=== PATIENT | female | born 1995 | race African-American/Black ===

== ENCOUNTER 2021-03-20 21:01 | Emergency (ER) | payer BC, OTHER ==
--- OUTSIDE RECORDS SUMMARY | 2021-03-20 21:04 | XMS REPORT | Continuity of Care Document ---
:1995 Author Organization [facility] t Address [address] [place] [address] Care Team Providers Name Role Phone Earl Nobles Primary Care Physician Monserrat Schroeder Attending Clinician Unavailable Jc BUNDY Attending Clinician Unavailable Jc Bundy DO Attending Clinician Brandon Vizcaino Attending Clinician Unavailable Rolando Attending Clinician Unavailable Darby Attending Clinician Unavailable Monserrat Schroeder Admitting Clinician Unavailable Payers Payer Name Policy Type Policy Number Effective Date Expiration Date S [facility] [id number] 2018 00:00:00 Problems Condition Condition Condition Status Onset Resolution Last Treating Co mments Source Name Details Category Date Date Treatment Clinician Date No known No known Disease Unive rs active active ity of problems problems [facility] Allergies, Adverse Reactions, Alerts Allergy Allergy Status Severity Reaction(s) Onset Inactive Treating Comm ents Source Name Type Date Date Clinician No Known DA Active U 2020-04 [facility] [place] No Known DA Active U 2020-04 [facility] 05-04 [facility] [place] No Known DA Active U 2020-04 [facility] All[facility]ie 05-04 [facility] [place] No Known DA Active U 2019-0 [facility] All[facility]ie 5-17 [facility] 00:[facility]: [facility] NO KNOWN Drug Active Univers ALLERGIE Class ity of S [facility] [place] [facility] Social History Social Habit Start Date Stop Date Quantity Comments Source Exposure to Unable to assess Univers ity of SARS-CoV-2 [facility] (event) Adams Sex Assigned At [birth year] [facility]it y of 00:00:00 00:00:00 [facility] Smoking Status Start Date Stop Date Source Unknown if ever smoked Universit y of [facility] Medications Ordered Filled Start Stop Current Ordering Indication Dosage Frequency Signature Comments Components Source Medication Medication Date Date Medication? Clinician (SIG) Name Name diphenhydrA 2020-04 No 25mg 25 mg, Uni vers MINE 05-19 Slow IV ity of (BENADRYL) 20:30: 19:25 [place], [place] injection 00 :00 ONCE, 1 Medical 25 mg dose, On [facility] 03/19/21 at 1430, STAT metoclopram 2020-04- No 10mg 10 mg, Uni vers gm HCl 05-19 Slow IV ity of (REGLAN) 20:30: 19:26 [place], [place] injection 00 :00 ONCE, 1 Medical 10 mg dose, On [facility] 03/19/21 at 1430, WILFREDO ketorolac 2020-04- No 30mg 30 mg, Unive rs (TORADOL) 05-19 Slow IV ity of injection 20:30: 19:25 [place], [place] 30 mg 00 :00 ONCE, 1 Medical dose, On [facility] 03/19/21 at 1430, WILFREDO
Fa culty member approving Restricted medication : MILLIE BUNDY NaCl 0.9% 2020-04 No 1000mL at 999 Uni vers (NS) bolus 05-19 mL/hr, ity of infusion 20:15: 20:53 1,000 mL, George as 1,000 mL 00 :00 IV Medical Infusion, Branch ONCE, 1 dose, On [place] 03/19/21 at 1415, WILFREDO No known 2020-04 No Univers medications 05-19 ity of 13:00: [address] Vital Signs Vital Name Observation Time Observation Value Comments Source Systolic blood 2021-03-19 20:00:00 119 mm[Hg] Univer sity of pressure [facility] [place] [facility] Diastolic blood 2021-03-19 20:00:00 81 mm[Hg] Unive rsity of pressure [facility] Heart rate 2021-03-19 20:00:00 74 /min [facility] Respiratory rate 2021-03-19 20:00:00 20 /min [facility] Oxygen saturation in 2021-03-19 20:00:00 100 /min [facility] Arterial blood by [facility] Pulse oximetry Branch Body weight 2021-03-19 18:36:00 97.523 kg [facility] Procedures Procedure Date / Time Performed Performing Clinician [facility] e NOTICE OF PRIVACY 2021-03-19 18:30:07 Doctor Unassigned, No Univ [facility] PRACTICES Name [facility] CONSENT/REFUSAL FOR 2021-03-19 18:29:14 Doctor Unassigned, No Un [facility] DIAGNOSIS AND Name [facility] TREATMENT [id number] 2021-03-04 00:00:00 HENDE.01 [facility] [id number] 2021-03-04 00:00:00 HENDE.01 [facility] [id number] 2021-03-04 00:00:00 HENDE.01 [facility] [id number] 2021-03-04 00:00:00 HENDE.01 [facility] [id number] 2021-03-04 00:00:00 HENDE.01 [facility] Encounters Start End Encounter Admission Attending Care Care Encounter Source Date/Time Date/Time Type Type Clinicians Facility Department ID 2021-03-11 Inpatient JUAN Schroeder [facility] LD [id number] [facility] 08:55:00 Dian [id number] [facility] 2021-03-11 [facility] [id number] [facility] 08:55:00 Dian 40 [facility] 2021-03-19 2021-03-19 Emergency X NIHARIKA [facility] ERT [id number] Univers 12:37:00 14:55:00 MILLIE ortega [facility] 2021-03-19 2021-03-19 Emergency [facility] [id number] [facility] 12:37:00 14:55:00 Millie WEBBER [id number] [facility] [id number] [facility] [id number] [address] 2021-03-16 2021-03-17 Emergency EM Carrillo [facility] PAULA [id number] [facility] 19:32:00 04:45:00 Piero [id number] [facility] [place] 2021-03-16 2021-03-16 Emergency EM Carrillo [facility] [id number] [facility] 19:32:00 19:32:00 Piero 46 [facility] [place] 2021-03-10 2021-03-10 Emergency EM Rolando, [facility] [id number] [facility] 14:58:00 20:07:00 Ariel [id number] [facility] [place] 2021-03-10 2021-03-10 Emergency EM Rolando, [facility] [id number] [facility] 14:58:00 20:07:00 Ariel 42 [facility] [place] 2021-03-04 2021-03-05 Inpatient EM Alexandre [facility] OB [id number] [facility] 01:52:00 14:21:00 Dian [id number] [facility] [place] 2021-03-04 2021-03-05 Inpatient EM Alexandre [facility] OB [id number] [facility] 01:52:00 14:21:00 Dian 33 [facility] [place] 2021-03-03 2021-03-03 Emergency EM Alexandre [facility] OSKAR [id number] [facility] 22:37:00 22:37:00 Dian [id number] [facility] [place] 2020-10-28 2020-10-28 Outpatient EM HARRY Pastor ELIZABETH [id number] [facility] 08:38:00 08:38:00 Remberto [id number] [facility] [place] 2020-10-17 2020-10-17 Outpatient HARRY Pastor ELIZABETH [id number] [facility] 09:00:00 09:00:00 Remberto [id number] [facility] Results Test Description Test Time Test Comments Results Result [facility] e Comments - CTA HEAD 2021-03-17 00:00:00 [facility] 1995 Sex: F Patient Name: JEN OLIVIER Unit No: [id number] EXAMS: CPT CODE: [id number] CTA HEAD 56583 Radiation Dose CTDIVOL = 53.03 (mGy): DLP = 1058.05 (mGy-cm) PROCEDURE INFORMATION: Exam: CT Angiography Head With Contrast, Venography Exam date and time: 03/17/2021 2:48 AM Age: 25 years old Clinical indication: Pain; Headache; Additional info: Abnormal CT head TECHNIQUE: Imaging protocol: Computed tomography angiography of the head with contrast. Exam focused on the veins. 3D rendering (Not supervised by radiologist): MIP and/or 3D reconstructed images were created by the technologist. Radiation optimization: All CT scans at this facility use at least one of these dose optimization techniques: automated exposure control; mA and/or kV adjustment per patient size (includes targeted exams where dose is matched to clinical indication); or iterative reconstruction. Contrast material: ISOVUE 300; Contrast volume: 100 ml; Contrast route: INTRAVENOUS (IV); COMPARISON: CT HEAD/BRAIN W/O CONT 03/16/2021 8:27 PM RADIATION DOSE METRICS: CTDI volume (mGy): 53.03 Total DLP (mGy-cm): 1058.05 FINDINGS: CTA BRAIN: The bilateral internal carotid arteries are patent. The bilateral anterior and middle cerebral arteries are patent. The vertebrobasilar arteries and bilateral posterior cerebral arteries are patent. No aneurysms are identified. CTV BRAIN: The superior sagittal sinus, straight sinus, vein of Cooper, internal cerebral veins, basal veins, transverse sinuses, sigmoid [facility] NAME: SOYJEN Radiology Department PHYS: Piero Myers [address] : 1995 AGE: 25 SEX: F [place], [place] [address] LOC: BlasERS PHONE #: [phone] EXAM DATE: 03/17/2021 STATUS: REG ER FAX #: [phone] RAD NO: Page 1 Signed Report 1 Patient Name: JEN OLIVIER Unit No: [id number] EXAMS: CPT CODE: [id number] CTA HEAD 42077 <Continued> sinuses, and jugular bulbs are patent. No thrombosed superficial cerebral veins are identified. IMPRESSION: 1. No occlusion or appreciably significant stenosis of the [place]. 2. No cerebral aneurysms are identified. 3. No evidence of intracranial venous thrombosis. at 0343 Reported and signed by: Santy Soto MD CC: Technologist: RT Marquez CTDI: DLP: Trnscrbd D/ (0343) GCD[facility] The [facility] NAME: JEN OLIVIER Radiology Department PHYS: JOSHUATee Bradyиван Taylor [address] : 1995 AGE: 25 SEX: F [place], [place] [address] LOC: BlasERS PHONE #: [phone] EXAM DATE: 03/17/2021 STATUS: REG ER FAX #: [phone] RAD NO: Page 2 Signed Report 1 Patient Name: JEN OLIVIER Unit No: [id number] EXAMS: CPT CODE: [id number] CTA HEAD 14391 <Continued> Orig Print D/T: S: 03/17/2021 (0343) [facility] NAME: SOYJEN Radiology Department PHYS: JOSJE.02 - Piero Vizcaino [address] : 1995 AGE: 25 SEX: F [place], [place] [address] LOC: MUNIRA PHONE #: [phone] EXAM DATE: 03/17/2021 STATUS: REG ER FAX #: [phone] RAD NO: Page 3 Signed Report 1 COMPREHENSIVE METABOLIC PANEL 2021-03-16 23:24:00 Test Item Value Reference Range Interpretation Comme nts SODIUM (test code = NA) 145 mEq/L 135-145 N POTASSIUM (test code = K) 4.3 mEq/L 3.5-5.0 N CHLORIDE (test code = CL) 109 mEq/L 100-115 N CARBON DIOXIDE (test code = CO2) 28 mEq/L 22-31 N ANION GAP (test code = GAP) 12.00 10-20 N GLUCOSE (test code = GLU) 108 mg/dL 65-110 N BLOOD UREA NITROGEN (test code = BUN) 11 mg/dL 7-18 N GLOMERULAR FILTRATION RATE (test code = GFR) 113 ml/min >60 N CREATININE (test code = CREAT) 0.7 mg/dL 0.5-1.0 N TOTAL PROTEIN (test code = PROT) 6.8 gm/dL 6.3-8.2 N ALBUMIN (test code = ALB) 2.9 gm/dL 3.4-4.8 L CALCIUM (test code = CA) 9.0 mg/dL 8.4-10.2 N BILIRUBIN TOTAL (test code = BILT) 0.1 mg/dL 0.2-1.0 L SGOT/AST (test code = AST) 13 units/L 15-37 L SGPT/ALT (test code = ALT) 21 units/L 12-78 N ALKALINE PHOSPHATASE TOTAL (test code = ALKP) 112 units/L 46-116 N [id number] 23:24:00 Test Item Value Reference Range Interpretation Comments LIPASE (test code = LIP) 87 units/L 73-393 N CBC W/AUTO [id number] 23:14:00 Test Item Value Reference Range Interpretation Comments WHITE BLOOD CELL (test code = WBC) 7.2 K/mm3 6.5-12.3 N RED BLOOD CELL (test code = RBC) 3.50 M/mm3 3.51-4.69 L HEMOGLOBIN (test code = HGB) 10.6 g/dL 10.1-13.8 N HEMATOCRIT (test code = HCT) 32.4 % 32.5-41.8 L MEAN CELL VOLUME (test code = MCV) 92.6 fL 84.6-96.6 N MEAN CELL HGB (test code = MCH) 30.3 pg 27.3-33.9 N MEAN CELL HGB CONCETRATION (test 32.7 gm/dL 32.0-34.2 N code = MCHC) RED CELL DISTRIBUTION WIDTH (test 13.0 % 12.2-16.3 N code = RDW) PLATELET COUNT (test code = PLT) 387 K/mm3 134-363 H MEAN PLATELET VOLUME (test code = 9.1 fL 9.2-12.7 L MPV) NEUTROPHIL % (test code = NT%) 51.5 % 57.9-77.3 L LYMPHOCYTE % (test code = LY%) 37.4 % 14.5-29.7 H MONOCYTE % (test code = MO%) 7.4 % 3.6-10.2 N EOSINOPHIL % (test code = EO%) 3.1 % 0.0-3.0 H BASOPHIL % (test code = BA%) 0.3 % 0.1-0.9 N NEUTROPHIL # (test code = NT#) 3.7 K/mm3 LYMPHOCYTE # (test code = LY#) 2.7 K/mm3 MONOCYTE # (test code = MO#) 0.5 K/mm3 EOSINOPHIL # (test code = EO#) 0.22 K/mm3 BASOPHIL # (test code = BA#) 0.0 K/mm3 RBC MORPHOLOGY REQUIRED (test code NORMAL NORMAL = RBCM) PLATELET MORPHOLOGY REQUIRED (test NORMAL NORMAL code = PLTMR) UA RFLX MICR CULT IF [id number] 20:33:00 Test Item Value Reference Range Interpretation Comments UA COLOR (test code = COLU) YELLOW YELLOW UA APPEARANCE (test code = CLEAR CLEAR APPU) UA GLUCOSE DIPSTICK (test code NEGATIVE NEG = DGLUU) UA BILIRUBIN DIPSTICK (test NEGATIVE NEG code = BILU) UA KETONE DIPSTICK (test code NEGATIVE NEG = KETU) UA SPECIFIC GRAVITY (test code 1.020 1.001-1.035 N = SGU) UA BLOOD DIPSTICK (test code = 1+ NEG A SERENE) UA PH DIPSTICK (test code = 5.0 5-9 MERCEDES) UA PROTEIN DIPSTICK (test code NEGATIVE NEG = PROU) UA UROBILINIOGEN DIPSTICK NEGATIVE mg/dL NEG (test code = URO) UA NITRITE DIPSTICK (test code NEG NEG = NINA) UA LEUKOCYTE ESTERASE DIPSTICK NEG NEG (test code = LEUU) UA WBC (test code = WBCU) 3-5 #/hpf NONE SEEN A UA RBC (test code = RBCU) 0-2 #/hpf NONE SEEN UA EPITHELIAL CELLS (test code RARE #/HPF RARE-FEW = EPIU) UA BACTERIA (test code = BACU) NEGATIVE /HPF RARE-FEW UA MUCUS (test code = MUCU) RARE NONE SEEN Indication for culture: Flank PainSpecimen Description: CLEAN CATCH- CT HEAD/BRAIN W/O [id number] 00:00:00 [facility] 1995 Sex: F Patient Name: JEN OLIVIER Unit No: [id number] EXAMS: CPT CODE: [id number] CT HEAD/BRAIN W/O CONT 15919 Radiation Dose CTDIVOL = 55.53 (mGy): DLP = 777.55 (mGy-cm) PROCEDURE INFORMATION: Exam: CT Head Without Contrast Exam date and time: 03/16/2021 8:27 PM Age: 25 years old Clinical indication: Other: Headaches, TECHNIQUE: Imaging protocol: Computed tomography of the head without contrast. Radiation optimization: All CT scans at this facility use at least one of these dose optimization techniques: automated exposure control; mAand/or kV adjustment per patient size (includes targeted exams where dose is matched to clinical indication); or iterative reconstruction. ADDITIONAL STUDY INFORMATION: CTDI volume (mGy): 55.53 Total DLP (mGy-cm): 777.55 COMPARISON: No relevant prior studies available. FINDINGS: INTRACRANIAL: The CT images of the head demonstrate no acute abnormal regions of increased or decreased cerebral density. Cooper-white differentiation appears preserved. The ventricular s ystem is normal in size and configuration without midline shift. No intra or extra axial masses orfluid collections are identified. Prominence of the pituitary gland is compatible with . A cerebral vein over the right parietal convexity (series 601, images 20 through 26; series 602, images 33 through 38) is noted to be more dense than the remainder of the cerebral veins and venous sinuses, possibly indicating thrombosis. There is no CT evidence of acute intracranial hemorrhage. SKULL: No acute CT abnormalities of the calvarium are detected. SINUSES: The included portions of the paranasal sinuses and mastoid air cell appear clear of acute disease. [facility] NAME: SOYJEN Radiology Department PHYS: Piero Myers [address] : 1995 AGE: 25 SEX: F [place], [place] [address] LOC: MUNIRA PHONE #: [phone] EXAM DATE: 03/16/2021 STATUS: OSVALDO WALLER FAX #: [phone] NO: Page 1 Signed Report 1 Patient Name: JEN OLIVIER Unit No: [id number] EXAMS: CPT CODE: [id number] CT HEAD/BRAIN W/O CONT 41353 <Continued> ADDITIONAL FINDINGS: None. IMPRESSION: 1. A cerebral veinover the right parietal convexity is noted to be more dense than the remainder of the cerebral veins and the venous sinuses, raising the possibility of venous thrombosis. No additional acute intracranial abnormalities are detected. There is no CT evidence of acute intracranial ischemia, acute intracranial hemorrhage or intracranial mass effect. Prominence of the pituitary gland is noted and is compatible with . SL:131 at 2058 Reported and signed by: Fernando Candelario MD CC: Technologist: Zee Jeitler, RT,CT,MR CTDI: 55.53 DLP: 777.55 Trnscrbd D/ (2057) VINOD [facility] NAME: JEN OLIVIER Radiology Department PHYS: Piero Myers [address] : 1995 AGE: 25 SEX: F [place], [place] [address] LOC: MUNIRA PHONE #: [phone] EXAM DATE: 03/16/2021 STATUS: REG ER FAX #: [phone] RAD NO: Page 2 Signed Report 1 Patient Name: JEN OLIVIER Unit No: [id number] EXAMS: CPT CODE: [id number] CT HEAD/BRAIN W/O CONT 02814 <Continued> Orig Print D/T: S: 03/16/2021 (2057) [facility] NAME: JEN OLIVIER Radiology Department PHYS: Piero Myers [address] : 1995 AGE: 25 SEX:F [place], [place] [address] LOC: MUNIRA PHONE #: [phone] EXAM DATE: 03/16/2021 STATUS: REG ER FAX #: [phone] RAD NO: Page 3 Signed Report 1UA RFLX MICR CULT IF [id number] 18:07:00 Test Item Value Reference Range Interpretation Comments UA COLOR (test code = COLU) YELLOW YELLOW UA APPEARANCE (test code = APPU) CLEAR CLEAR UA GLUCOSE DIPSTICK (test code = NEGATIVE NEG DGLUU) UA BILIRUBIN DIPSTICK (test code NEGATIVE NEG = BILU) UA KETONE DIPSTICK (test code = 2+ NEG A KETU) UA SPECIFIC GRAVITY (test code = 1.024 1.001-1.035 N SGU) UA BLOOD DIPSTICK (test code = 2+ NEG A SERENE) UA PH DIPSTICK (test code = MERCEDES) 5.0 5-9 UA PROTEIN DIPSTICK (test code = NEGATIVE NEG PROU) UA UROBILINIOGEN DIPSTICK (test 2.0 mg/dL NEG code = URO) UA NITRITE DIPSTICK (test code = NEG NEG NINA) UA LEUKOCYTE ESTERASE DIPSTICK 1+ NEG A (test code = LEUU) UA WBC (test code = WBCU) 16-20 #/hpf NONE SEEN A UA RBC (test code = RBCU) 6-10 #/hpf NONE SEEN A UA EPITHELIAL CELLS (test code = RARE #/HPF RARE-FEW EPIU) UA MUCUS (test code = MUCU) 2+ NONE SEEN Indication for culture: Suprapubic PainSpecimen Description: CLEAN CATCHUR PROTEIN/CREATININE [id number] 18:07:00 Test Item Value Reference Range Interpretation Comments UR PROTEIN RANDOM (test code = 36.5 mg/dL PROTU) UR CREATININE RANDOM (test 183.3 mg/dL code = CREATU) PROTEIN/CREATININE RATIO (test 199.1 mg/gcrea <200 code = P/CRATIO) Indication for culture: Suprapubic PainSpecimen Description: CLEAN CATCHCBC W/AUTO [id number] 08:44:00 Test Item Value Reference Range Interpretation Comments WHITE BLOOD CELL (test code = WBC) 6.7 K/mm3 6.5-12.3 N RED BLOOD CELL (test code = RBC) 3.27 M/mm3 3.51-4.69 L HEMOGLOBIN (test code = HGB) 9.8 g/dL 10.1-13.8 L HEMATOCRIT (test code = HCT) 30.0 % 32.5-41.8 L MEAN CELL VOLUME (test code = MCV) 91.7 fL 84.6-96.6 N MEAN CELL HGB (test code = MCH) 30.0 pg 27.3-33.9 N MEAN CELL HGB CONCETRATION (test 32.7 gm/dL 32.0-34.2 N code = MCHC) RED CELL DISTRIBUTION WIDTH (test 13.3 % 12.2-16.3 N code = RDW) PLATELET COUNT (test code = PLT) 210 K/mm3 134-363 N MEAN PLATELET VOLUME (test code = 9.8 fL 9.2-12.7 N MPV) NEUTROPHIL % (test code = NT%) 62.4 % 57.9-77.3 N LYMPHOCYTE % (test code = LY%) 21.7 % 14.5-29.7 N MONOCYTE % (test code = MO%) 13.2 % 3.6-10.2 H EOSINOPHIL % (test code = EO%) 2.1 % 0.0-3.0 N BASOPHIL % (test code = BA%) 0.3 % 0.1-0.9 N NEUTROPHIL # (test code = NT#) 4.2 K/mm3 LYMPHOCYTE # (test code = LY#) 1.5 K/mm3 MONOCYTE # (test code = MO#) 0.9 K/mm3 EOSINOPHIL # (test code = EO#) 0.14 K/mm3 BASOPHIL # (test code = BA#) 0.0 K/mm3 RBC MORPHOLOGY REQUIRED (test code NORMAL NORMAL = RBCM) PLATELET MORPHOLOGY REQUIRED (test NORMAL NORMAL code = PLTMR) AG HEPATITIS B [id number] 05:08:00 Test Item Value Reference Range Interpretation Comments AG HEPATITIS B SURFACE (test code NONREACTIVE NONREACTIVE = HBSAG) AB HEPATITIS C [id number] 05:08:00 Test Item Value Reference Range Interpretation Comments AB HEPATITIS C (test code = NONREACTIVE NONREACTIVE HCVAB) SIGNAL TO CUTOFF (test code = <0.02 <0.80 N CUTOFF) RUBELLA [id number] 05:08:00 Test Item Value Reference Range Interpretation Comments RUBELLA SCREEN 29.7 IUnit/ml Results >10. 0IUnits/ml (test code = are considered positive RUBSC) inaccordance wi th the CLSI guidelines and based on the [employer] S tandard for Anti-Rubell a serum as anindicator of immune status and a br eakpoint to detect mostseropositiv e persons. AB [id number] 05:08:00 Test Item Value Reference Range Interpretation Comments AB TREPONEMA (test code = TREPAB) NONREACTIVE NONREACTIVE AB HIV 1 05:08:00 Test Item Value Reference Range Interpretation Comments AB HIV 1 2 (test NONREACTIVE NONREACTIVE Done by [facility] code = FIQ29ST) 4th Gen HIV Ag/Ab Combo Screen CBC W/AUTO [id number] 04:02:00 Test Item Value Reference Range Interpretation Comments WHITE BLOOD CELL (test code = WBC) 6.6 K/mm3 6.5-12.3 N RED BLOOD CELL (test code = RBC) 3.82 M/mm3 3.51-4.69 N HEMOGLOBIN (test code = HGB) 11.6 g/dL 10.1-13.8 N HEMATOCRIT (test code = HCT) 35.4 % 32.5-41.8 N MEAN CELL VOLUME (test code = MCV) 92.7 fL 84.6-96.6 N MEAN CELL HGB (test code = MCH) 30.4 pg 27.3-33.9 N MEAN CELL HGB CONCETRATION (test 32.8 gm/dL 32.0-34.2 N code = MCHC) RED CELL DISTRIBUTION WIDTH (test 13.4 % 12.2-16.3 N code = RDW) PLATELET COUNT (test code = PLT) 208 K/mm3 134-363 N MEAN PLATELET VOLUME (test code = 9.7 fL 9.2-12.7 N MPV) NEUTROPHIL % (test code = NT%) 58.7 % 57.9-77.3 N LYMPHOCYTE % (test code = LY%) 25.6 % 14.5-29.7 N MONOCYTE % (test code = MO%) 13.8 % 3.6-10.2 H EOSINOPHIL % (test code = EO%) 1.4 % 0.0-3.0 N BASOPHIL % (test code = BA%) 0.2 % 0.1-0.9 N NEUTROPHIL # (test code = NT#) 3.9 K/mm3 LYMPHOCYTE # (test code = LY#) 1.7 K/mm3 MONOCYTE # (test code = MO#) 0.9 K/mm3 EOSINOPHIL # (test code = EO#) 0.09 K/mm3 BASOPHIL # (test code = BA#) 0.0 K/mm3 RBC MORPHOLOGY REQUIRED (test code NORMAL NORMAL = RBCM) PLATELET MORPHOLOGY REQUIRED (test NORMAL NORMAL code = PLTMR) COVID 19 Asymptomatic IH [id number] 02:11:00 Test Item Value Reference Range Interpretation Comments COVID 19 NEGATIVE NEGATIVE This test has b een Asymptomatic IH AG authorize d only for the (test code = detection ofpro teins from COVNONPUIAG) SARS-CoV-2, not for any other viruses orpathogens. N egative results should be treated as presumptive andconfirmed wi th a molecular assay , if necessary for patientmanageme nt. Negative result s do not rule out COVID- 19 andshould not b e used as the sole basis for treatment orpat ient management deci sions, including infec tion controldecision s. Negative result s should be considered i n thecontext of a patient's recent exposure s, history and thepresence of clinical signs and symptoms consis tent withCOVID-19. T his test has not been FD A cleared or approved; th e test hasbeen authori john by FDA under an Emerge ncy Use Authorization(E UA) for use by laborato prince certified under the CLIA thatmeet the re quirements to perform mode rate, high or waivedcomple xity tests. This alec t is authorized for use at thePoint of Car e (POC), i.e., in patien t care settingsoperati ng under a CLIA Certificat e of Waiver, Certifi harvey ofCompliance, o r Certificate of Accreditation. This test is only authori john for the duration of thedeclaration that circumstances e xist justifying theauthorizatio n of emergency use o f in vitro diagnostic test sfor detection and/o r diagnosis of CO VID-19 under Rpurrpt99 4(b)(1) of the Act, 21 U.S .C. 360bbb-3(b)(1), unless theauthorizatio n is terminated or r evoked sooner. - US PREG AFTER [id number] 00:00:00 [facility] 1995 Sex: F Patient Name: JEN OLIVIER Unit No: [id number] EXAMS: CPT CODE: [id number] US PREG AFTER 1ST TRI 13604 PROCEDURE INFORMATION: Exam: US After First Trimester, Transabdominal Exam date and time: 10/28/2020 10:10 AM Age: 25 years old Clinical indication: Screening exam; Routine US, uterus; Additional info: Anatomy LABS AND CLINICAL REPORTS: Last menstrual period start date: 06/04/2020 Gestational age by LMP: 20 weeks, 6 days Estimated due date by last menstrual period: 03/11/2021 TECHNIQUE: Imaging protocol: Real-time transabdominal obstetrical ultrasound of the maternal pelvis and a second or third trimester with imagedocumentation. COMPARISON: OT US FLW UP 08/01/2018 8:26 AM FINDINGS: Gestation: Single live intrauterine gestation. heart rate: Normal heart rate of 142 bpm. Fetalpresentation: Cephalic presentation. Placenta: Anterior grade 1 placenta without placenta previa. Amniotic fluid: Amniotic fluid is normal for gestational age. ANATOMY: midline falx: Normal lateral ventricles: Normal choroid plexus: Normal cerebellum: Normal cisterna magna: Normal upper lip and nose: Normal heart four-chamber view, heart size and position: Normal situs, four chamber view, three-vessel view, aortic arch, RVOT/LVOT kidneys: Normal stomach: Normal urinary bladder: Normal spine: Normal Umbilical cord insertion site into the abdomen: Normal Umbilical cord vessel number: 3 vessel cord arms and hands: Visualized portions are normal legs and feet: Visualized portions are normal external genitalia: No visualized abnormalities BIOMETRY: Gestation al age (AUA): 21 weeks, 0 days Estimated due date (AUA): 03/10/2021 Estimated weight: 399 g (14 oz) +/- 60 g Estimated weight percentile: Not calculated Biparietal diameter: 5.2 cm (21 weeks, 5 days) Head circumference: 18.9 cm (21 weeks, 1 day) Abdominal circumference: 15.8 cm (21 weeks, 0 days) The [facility] NAME: OLIVIER,JEN Radiology Department PHYS: Remberto Mitchell [address] : 1995 AGE: 25 SEX: Olga [place], [place] [address] LOC: BlasRAD PHONE #: [phone] EXAM DATE: 10/28/2020 STATUS: REG CLI FAX #: [phone] RAD NO: Page 1 Signed Report (CONTINUED) Patient Name: JEN OLIVIER Unit No: [id number] EXAMS: CPT CODE: [id number] US PREG AFTER 1ST TRI [address] <Continued> Humerus length: 3.1 cm (20 weeks, 1 day) Femur length: 3.5 cm (21 weeks, 1 day) biometric ratios: FL/BPD 68.2; FL/AC 22.42; HC/AC 1.19; CI 78.99 MATERNAL: Uterus: No significant abnormality. Cervix: The cervix measures 4.2 cm. Right adnexa: The right ovary measures 3.6 x 2 x 2.8 cm. Normal contour. Corpus luteal cyst measures 2.7 x 1.8 x 2.2 cm. Left adnexa: The left ovary measures 2.9 x 1.6 x 2.6 cm. Normal contour. IMPRESSION: 1. Single live intrauterine gestation with growth concordant with dates. 2. No visualized abnormalities. at 1140 Reported and signed by: Brian Robles MD CC: Remberto Pastor Technologist: Tamara Stallworth RDMS Probe: Trnscrbd D/ (1140) GCD.CPS Orig Print D/T: S: 10/28/2020 (1140) The [facility] NAME: JEN OLIVIER Radiology Department PHYS: Remberto Mitchell [address] : 1995 AGE: 25 SEX: F [place], [place] [address]HEWR NO: [id number] LOC: BlasRAD PHONE #: [phone] EXAM DATE: 10/28/2020 STATUS: REG CLI FAX #: [phone] RAD NO: Page 2 Signed Report Patient Name: JEN OLIVIER Unit No: [id number] EXAMS: CPT CODE: [id number] US PREGAFTER 1ST TRI 22660 <Continued> The [facility] NAME: JEN OLIVIER Radiology Department PHYS: Remberto Mitchell [address] : 1995 AGE: 25 SEX: F [place], [place] [address] LOC: PRADIP PHONE #: [phone] EXAM DATE: 10/28/2020 STATUS: REG CLI FAX #: [phone] RAD NO: Page 3 Signed ReportHGB [id number] 07:54:00 Test Item Value Reference Range Interpretation Comments HEMOGLOBIN (test code = HGB) 10.3 g/dL 10.7-13.9 L HEMATOCRIT (test code = HCT) 32.6 % 32.1-42.1 N AG HEPATITIS B [id number] 22:08:00 Test Item Value Reference Range Interpretation Comments AG HEPATITIS B SURFACE (test code NONREACTIVE NONREACTIVE = HBSAG) IS CONSENT FORM SIGNED FOR HIV TESTING? YAB HEPATITIS C [id number] 22:08:00 Test Item Value Reference Range Interpretation Comments AB HEPATITIS C (test code = NONREACTIVE NONREACTIVE HCVAB) SIGNAL TO CUTOFF (test code = 0.10 <0.80 N CUTOFF) IS CONSENT FORM SIGNED FOR HIV TESTING? YAB [id number] 22:08:00 Test Item Value Reference Range Interpretation Comments AB TREPONEMA (test code = TREPAB) NONREACTIVE NONREACTIVE IS CONSENT FORM SIGNED FOR HIV TESTING? YAB HIV 1 22:08:00 Test Item Value Reference Range Interpretation Comments AB HIV 1 2 (test NONREACTIVE NONREACTIVE [facility] code = [id number]) 4th Gen HIV Ag/Ab Combo Screen IS CONSENT FORM SIGNED FOR HIV TESTING? YAG HEPATITIS B [id number] 21:00:00 Test Item Value Reference Range Interpretation Comments AG HEPATITIS B SURFACE (test code NONREACTIVE NONREACTIVE = HBSAG) IS CONSENT FORM SIGNED FOR HIV TESTING? YAB HEPATITIS C [id number] 21:00:00 Test Item Value Reference Range Interpretation Comments AB HEPATITIS C (test code = HCVAB) NONREACTIVE SIGNAL TO CUTOFF (test code = CUTOFF) <0.80 IS CONSENT FORM SIGNED FOR HIV TESTING? YAB [id number] 21:00:00 Test Item Value Reference Range Interpretation Comments AB TREPONEMA (test code = TREPAB) NONREACTIVE NONREACTIVE IS CONSENT FORM SIGNED FOR HIV TESTING? YAB HIV 1 21:00:00 Test Item Value Reference Range Interpretation Comments AB HIV 1 2 (test code = RMG21RM) NONREACTIVE IS CONSENT FORM SIGNED FOR HIV TESTING? YCBC W/AUTO [id number] 20:55:00 Test Item Value Reference Range Interpretation Comments WHITE BLOOD CELL (test code = WBC) 7.0 K/mm3 6.6-12.1 N RED BLOOD CELL (test code = RBC) 3.72 M/mm3 3.45-5.01 N HEMOGLOBIN (test code = HGB) 11.4 g/dL 10.7-13.9 N HEMATOCRIT (test code = HCT) 34.3 % 32.1-42.1 N MEAN CELL VOLUME (test code = MCV) 92 fL 84.1-94.8 N MEAN CELL HGB (test code = MCH) 30.6 pg 27-35 N MEAN CELL HGB CONCETRATION (test 33.2 gm/dL 32.2-34.1 N code = MCHC) RED CELL DISTRIBUTION WIDTH (test 14.1 % 12.4-16.5 N code = RDW) PLATELET COUNT (test code = PLT) 216 K/mm3 133-385 N IMMATURE PLATELET FRACTION (test 0.0 % 0.0-10.8 N code = IPF) MEAN PLATELET VOLUME (test code = 9.8 fl 9.1-12.7 N MPV) NEUTROPHIL % (test code = NT%) 70.2 % 56.5-79.4 N LYMPHOCYTE % (test code = LY%) 18.5 % 14.3-34.3 N MONOCYTE % (test code = MO%) 10.1 % 5.1-10.4 N EOSINOPHIL % (test code = EO%) 0.7 % 0.1-3.0 N BASOPHIL % (test code = BA%) 0.1 % 0.1-1.0 N NEUTROPHIL # (test code = NT#) 4.9 K/mm3 LYMPHOCYTE # (test code = LY#) 1.3 K/mm3 MONOCYTE # (test code = MO#) 0.7 K/mm3 EOSINOPHIL # (test code = EO#) 0.05 K/mm3 BASOPHIL # (test code = BA#) 0.0 K/mm3 RBC MORPHOLOGY REQUIRED (test code NORMAL NORMAL = RBCM) PLATELET MORPHOLOGY REQUIRED (test NORMAL NORMAL code = PLTMR) UR PROTEIN/CREATININE [id number] 15:39:00 Test Item Value Reference Range Interpretation Comments UR PROTEIN RANDOM (test code = 18.4 mg/dL PROTU) UR CREATININE RANDOM (test 135.8 mg/dL code = CREATU) PROTEIN/CREATININE RATIO (test 130.0 mg/gcrea <200 code = P/CRATIO) COMPREHENSIVE METABOLIC [id number] 15:14:00 Test Item Value Reference Range Interpretation Comments SODIUM (test code = NA) 138 mEq/L 135-145 N POTASSIUM (test code = K) 4.0 mEq/L 3.5-5.0 N CHLORIDE (test code = CL) 103 mEq/L 100-115 N CARBON DIOXIDE (test code = CO2) 24 mEq/L 22-31 N ANION GAP (test code = GAP) 14.60 10-20 N GLUCOSE (test code = GLU) 94 mg/dL 65-110 N BLOOD UREA NITROGEN (test code = 6 mg/dL 7-18 L BUN) GLOMERULAR FILTRATION RATE (test 138 ml/min >60 N code = GFR) CREATININE (test code = CREAT) 0.6 mg/dL 0.5-1.0 N TOTAL PROTEIN (test code = PROT) 5.9 gm/dL 6.3-8.2 L ALBUMIN (test code = ALB) 2.5 gm/dL 3.4-4.8 L CALCIUM (test code = CA) 8.4 mg/dL 8.4-10.2 N BILIRUBIN TOTAL (test code = 0.2 mg/dL 0.2-1.0 N BILT) SGOT/AST (test code = AST) 19 units/L 15-37 N SGPT/ALT (test code = ALT) 20 units/L 12-78 N ALKALINE PHOSPHATASE TOTAL (test 127 units/L 46-116 H code = ALKP) CBC W/AUTO [id number] 14:51:00 Test Item Value Reference Range Interpretation Comments WHITE BLOOD CELL (test code = WBC) 7.0 K/mm3 6.6-12.1 N RED BLOOD CELL (test code = RBC) 3.52 M/mm3 3.45-5.01 N HEMOGLOBIN (test code = HGB) 10.8 g/dL 10.7-13.9 N HEMATOCRIT (test code = HCT) 32.5 % 32.1-42.1 N MEAN CELL VOLUME (test code = MCV) 92 fL 84.1-94.8 N MEAN CELL HGB (test code = MCH) 30.7 pg 27-35 N MEAN CELL HGB CONCETRATION (test 33.2 gm/dL 32.2-34.1 N code = MCHC) RED CELL DISTRIBUTION WIDTH (test 14.0 % 12.4-16.5 N code = RDW) PLATELET COUNT (test code = PLT) 195 K/mm3 133-385 N IMMATURE PLATELET FRACTION (test 0.0 % 0.0-10.8 N code = IPF) MEAN PLATELET VOLUME (test code = 10.0 fl 9.1-12.7 N MPV) NEUTROPHIL % (test code = NT%) 72.2 % 56.5-79.4 N LYMPHOCYTE % (test code = LY%) 17.1 % 14.3-34.3 N MONOCYTE % (test code = MO%) 9.1 % 5.1-10.4 N EOSINOPHIL % (test code = EO%) 0.6 % 0.1-3.0 N BASOPHIL % (test code = BA%) 0.1 % 0.1-1.0 N NEUTROPHIL # (test code = NT#) 5.0 K/mm3 LYMPHOCYTE # (test code = LY#) 1.2 K/mm3 MONOCYTE # (test code = MO#) 0.6 K/mm3 EOSINOPHIL # (test code = EO#) 0.04 K/mm3 BASOPHIL # (test code = BA#) 0.0 K/mm3 RBC MORPHOLOGY REQUIRED (test code NORMAL NORMAL = RBCM) PLATELET MORPHOLOGY REQUIRED (test NORMAL NORMAL code = PLTMR) CBC W/AUTO [id number] 14:48:00 Test Item Value Reference Range Interpretation Comments WHITE BLOOD CELL (test code = WBC) 7.0 K/mm3 6.6-12.1 N RED BLOOD CELL (test code = RBC) 3.52 M/mm3 3.45-5.01 N HEMOGLOBIN (test code = HGB) 10.8 g/dL 10.7-13.9 N HEMATOCRIT (test code = HCT) 32.5 % 32.1-42.1 N MEAN CELL VOLUME (test code = MCV) 92 fL 84.1-94.8 N MEAN CELL HGB (test code = MCH) 30.7 pg 27-35 N MEAN CELL HGB CONCETRATION (test 33.2 gm/dL 32.2-34.1 N code = MCHC) RED CELL DISTRIBUTION WIDTH (test 14.0 % 12.4-16.5 N code = RDW) PLATELET COUNT (test code = PLT) 195 K/mm3 133-385 N IMMATURE PLATELET FRACTION (test 0.0 % 0.0-10.8 N code = IPF) MEAN PLATELET VOLUME (test code = 10.0 fl 9.1-12.7 N MPV) NEUTROPHIL % (test code = NT%) 72.2 % 56.5-79.4 N LYMPHOCYTE % (test code = LY%) 17.1 % 14.3-34.3 N MONOCYTE % (test code = MO%) 9.1 % 5.1-10.4 N EOSINOPHIL % (test code = EO%) 0.6 % 0.1-3.0 N BASOPHIL % (test code = BA%) 0.1 % 0.1-1.0 N NEUTROPHIL # (test code = NT#) 5.0 K/mm3 LYMPHOCYTE # (test code = LY#) 1.2 K/mm3 MONOCYTE # (test code = MO#) 0.6 K/mm3 EOSINOPHIL # (test code = EO#) 0.04 K/mm3 BASOPHIL # (test code = BA#) 0.0 K/mm3 RBC MORPHOLOGY REQUIRED (test code NORMAL = RBCM) PLATELET MORPHOLOGY REQUIRED (test NORMAL code = PLTMR) UR PROTEIN/CREATININE [id number] 13:29:00 Test Item Value Reference Range Interpretation Comments UR PROTEIN RANDOM (test code = 13.5 mg/dL PROTU) UR CREATININE RANDOM (test 85.0 mg/dL code = CREATU) PROTEIN/CREATININE RATIO (test 150.0 mg/gcrea <200 code = P/CRATIO) COMPREHENSIVE METABOLIC [id number] 13:22:00 Test Item Value Reference Range Interpretation Comments SODIUM (test code = NA) 136 mEq/L 135-145 N POTASSIUM (test code = K) 3.9 mEq/L 3.5-5.0 N CHLORIDE (test code = CL) 102 mEq/L 100-115 N CARBON DIOXIDE (test code = CO2) 24 mEq/L 22-31 N ANION GAP (test code = GAP) 13.50 10-20 N GLUCOSE (test code = GLU) 89 mg/dL 65-110 N BLOOD UREA NITROGEN (test code = 6 mg/dL 7-18 L BUN) GLOMERULAR FILTRATION RATE (test 170 ml/min >60 N code = GFR) CREATININE (test code = CREAT) 0.5 mg/dL 0.5-1.0 N TOTAL PROTEIN (test code = PROT) 6.3 gm/dL 6.3-8.2 N ALBUMIN (test code = ALB) 2.8 gm/dL 3.4-4.8 L CALCIUM (test code = CA) 8.8 mg/dL 8.4-10.2 N BILIRUBIN TOTAL (test code = 0.3 mg/dL 0.2-1.0 N BILT) SGOT/AST (test code = AST) 14 units/L 15-37 L SGPT/ALT (test code = ALT) 17 units/L 12-78 N ALKALINE PHOSPHATASE TOTAL (test 124 units/L 46-116 H code = ALKP) CBC W/AUTO [id number] 12:49:00 Test Item Value Reference Range Interpretation Comments WHITE BLOOD CELL (test code = WBC) 7.2 K/mm3 6.6-12.1 N RED BLOOD CELL (test code = RBC) 3.79 M/mm3 3.45-5.01 N HEMOGLOBIN (test code = HGB) 11.5 g/dL 10.7-13.9 N HEMATOCRIT (test code = HCT) 35.2 % 32.1-42.1 N MEAN CELL VOLUME (test code = MCV) 93 fL 84.1-94.8 N MEAN CELL HGB (test code = MCH) 30.3 pg 27-35 N MEAN CELL HGB CONCETRATION (test 32.7 gm/dL 32.2-34.1 N code = MCHC) RED CELL DISTRIBUTION WIDTH (test 13.9 % 12.4-16.5 N code = RDW) PLATELET COUNT (test code = PLT) 222 K/mm3 133-385 N IMMATURE PLATELET FRACTION (test 0.0 % 0.0-10.8 N code = IPF) MEAN PLATELET VOLUME (test code = 9.7 fl 9.1-12.7 N MPV) NEUTROPHIL % (test code = NT%) 69.2 % 56.5-79.4 N LYMPHOCYTE % (test code = LY%) 19.8 % 14.3-34.3 N MONOCYTE % (test code = MO%) 9.7 % 5.1-10.4 N EOSINOPHIL % (test code = EO%) 0.8 % 0.1-3.0 N BASOPHIL % (test code = BA%) 0.1 % 0.1-1.0 N NEUTROPHIL # (test code = NT#) 5.0 K/mm3 LYMPHOCYTE # (test code = LY#) 1.4 K/mm3 MONOCYTE # (test code = MO#) 0.7 K/mm3 EOSINOPHIL # (test code = EO#) 0.06 K/mm3 BASOPHIL # (test code = BA#) 0.0 K/mm3 RBC MORPHOLOGY REQUIRED (test code NORMAL NORMAL = RBCM) PLATELET MORPHOLOGY REQUIRED (test NORMAL NORMAL code = PLTMR) - US TXW [id number] 09:23:00 Patient Name: JEN OLIVIER Unit No: [id number] EXAMS: CPT CODE: [id number] [place] [address] [facility] [address], [place] [address] OBSTETRICAL ULTRASOUND REPORT Pat. Name: JEN OLIVIER Pat. No: [id number] StudyDate: 08/01/2018 8:26am , Age: 03 1995, 22 Pregnancies: 2, Para 0, Ab 1 LMP: 01/05/2018 GA by LMP: 29w5d GA by 1st: 30w5d GA by US: 31w2d GA Selected: 30w5d (From Known E) RAMIRO: 10/05/2018 Referring MD: Dian Schroeder M.D. Front Desk Specialist: Sadia Stewart RDMS CPT4: USPREGFU Admitting MD: Remberto Pastor Hist/Ind: SCAN 2 30 WKS SIZE/DATES LGA MEASUREMENTS AGE GROWTH EVALUATION Measurement GA Range Srce %for GA Ratios ----- ---- ------- BPD 7.9 cm 32w0d (52u0a-22r5q) Hadl BPD 70% FL/BPD 0.73 (0.71 - 0.87) HC 29.8 cm 32w4d (56y7t-98g7k) Hadl HC 78% FL/AC 0.21 (0.20 - 0.24) APD 8.6 cm APD HC/AC 1.06 (0.97 - 1.16) TAD 9.3 cm TAD CI 0.77 (0.70 - 0.86) AC 28.1 iy15v3q (95e8q-50p0s) Hadl AC 73% FL 5.8 cm 30w0d (03c8m-40s1d) Hadl FL 39% HL 5.3 cm 30w6d (71m8b-91g2i) Piero HL 53% GA for sonogram 31w2d (30l8r-80a3d) Weight Estimate: based on (BPD,HC,AC,FL) Hadlock Weight: 1811 gm (1472-5100) Hadlo : 3lbs, 15oz Normal: 1581 gm (9903-2475) Brenn Wt% 64% for 30.7 wks Cervical Length: 3.9 cm Heart Rate: 158 bpm Amniotic Fluid Index: 15.8cm (08.9-23.7) Q1: 7.0cm Q2: 3.9cm Q3: 4.9cm Q4: 0.0cm MATERNAL ANATOMY Ovaries LxHxW (cm) Right 1.9 x 1.7 x 2.0 Vol: 3.4cc Left 3.2 x 1.8 x 2.3 Vol: 6.9cc CLINICAL SUMMARY Type of Gestation: Almaguer Intrauterine in vertex presentation. size is appropriate for gestational age by weight. [facility] NAME: ROE OLIVIERLA Radiology Department PHYS: Remberto Mitchell [address] : 1995 AGE: 23 SEX: [place], [place] [address] LOC: BlasRAD PHONE #: [phone] EXAM DATE: 08/01/2018 STATUS: REG CLI FAX #: [phone] RAD NO: Page 1 Signed Report (CONTINUED) Patient Name: JEN OLIVIER Unit No: [id number] EXAMS: CPT CODE: [id number] [place] [address] <Continued> growth: Consistent with normal growth motion and organs seen: heart motion seen Placental location: Posterior Placental maturity : Grade 1 There is no evidence of placenta previa. Amniotic fluid volume is normal. Uterus and adnexa: No significant abnormalities seen Rima Nichols M.D. Electronic Signature 08/01/2018 09:23am at 0923 Reported and signed by: Rima Nichols MD CC: Duane Nobles III, MD Technologist: Sadia Stewart RDMS Probe: Trnscrbd D/ (922) [email or web address] Orig Print D/T: S: 08/01/2018 (922) The [facility] NAME: JEN OLIVIER Radiology Department PHYS: Remberto Mitchell [address] : 1995 AGE: 23 SEX: [place] [address] LOC: BlasRAD PHONE #: [phone] EXAM DATE: 08/01/2018 STATUS: REG CLI FAX #: [phone] RAD NO: Page 2 Signed Report Patient Name: JEN OLIVIER Unit No: [id number] EXAMS: CPT CODE: [id number] US FLW UP [address] <Continued> The [facility] NAME: MARIANNE CHRISTIEJEN Radiology Department PHYS: Remberto Mitchell [address] : 1995 AGE: 23 SEX: [place] [address] LOC: BlasRAD PHONE #: [phone] EXAM DATE: 08/01/2018 STATUS: REG CLI FAX #: [phone] RAD NO: Page 3 Signed Report- US PREG UT [id number] 11:41:00 Patient Name: JEN OLIVIER Unit No: [id number] EXAMS: CPT CODE: [id number] US PREG UT TRANSVAGINAL [address] [facility] [address] [place], [place] [address] OBSTETRICAL ULTRASOUND REPORT Pat. Name: JEN OLIVIER Pat. No: [id number] StudyDate: 06/03/2018 9:57am , Age: 03 1995, 22 Pregnancies: 2, Para 0, Ab 1 LMP: 01/05/2018 GA by LMP: 21w2d GA by US: 22w5d GA Selected: 22w2d (From Known E) RAMIRO: 10/05/2018 Referring MD: Remberto Pastor Front Desk Specialist: Laz Bolanos RDMS CPT4: USPRUTTRVG Admitting MD: Remberto Pastor Hist/Ind: Anatomy OB Scan #1 ---- MEASUREMENTS AGE GROWTH EVALUATION Measurement GA Range Srce %for GA Ratios ----- ---- ------- BPD 5.8 cm 23w6d (98a0b-05d6k) Hadl BPD >95FL/BPD 0.66 HC 21.3 cm 23w2d (31h2c-41q9w) Hadl HC 77% FL/AC 0.21 (0.20 - 0.24) APD 5.8 cm APD HC/AC 1.18 (1.04 - 1.23) TAD 5.7 cm TADCI 0.80 (0.70 - 0.86) AC 18.1 cm 22w5d (20w5d- 24w5d) Hadl AC 59% FL 3.8 cm 21w6d (92i3a-27i0d) Hadl FL 41% HL 3.6 cm 22w3d (53g5n-27j0z) Piero HL 53% GA for sonogram 22w5d (34m7f-70d2x) Weight Estimate: based on (BPD,HC,AC,FL) Hadlock Weight: 530 gm (453-608) Hadlock : 1lbs, 2oz Normal: 500 gm (334-940) Aga Wt% 53% for 22.3 wks Cervical Length:3.8 cm Heart Rate: 147 bpm CLINICAL SUMMARY Type of Gestation: Almaguer Intrauterine in vertex presentation. size is appropriate for gestational age by weight. growth: Consistent with normal growth motion and organs seen: heart motion seen body and limb movements seen Four chamber heart observed Left ventricular outflow tra ct (LVOT) seen Right ventricular outflow tract (RVOT) seen Normal intracranial anatomyseen Umbilical cord insertion in fetus seen stomach, Renal Fossa, Bladder and Spine seen [facility] NAME: JEN OLIVIER Radiology Department PHYS: Remberto Mitchell [address] : 1995 AGE: 22 SEX: F [place], [place] [address] LOC: Olga.RAD PHONE #: [phone] EXAM DATE: 06/03/2018 STATUS: DEP CLI FAX #: [phone] RAD NO: Page 1 Signed Report (CONTINUED) Patient Name: JEN OLIVIER Unit No: [id number] EXAMS: CPT CODE: [id number] [facility] TRANSVAGINAL [address] <Continued> Three vessel umbilical cord noted Echogenic intracardiac focus seen abnormalities observed: None seen at this exam Placental location: Posterior Low-lying Placental maturity : Grade 1 There is no evidence of placenta previa. Amniotic fluid volume is normal. Uterus and adnexa: No significant abnormalities seen Thank you for allowing us to participate in the care of this patient. Hilario Salinas M.D. Electronic Signature 06/03/2018 11:41am Electronically Signedby Hilario Salinas MD on 06/03/2018 at 1141 Reported and signed by: Hilario Salinas MD CC: Duane Nobles III, MD Technologist: Laz Bolanos, [facility] Probe: [id number] Trnscrbd D/ (1141) [email or web address] Orig Print D/T: S: 06/06/2018 (1337) The [facility] NAME: ROE OLIVIERLA Radiology Department PHYS: Remberto Mitchell [address] : 1995 AGE: 22 SEX: F [place] [address] LOC: BlasRAD PHONE #: [phone] EXAM DATE: 06/03/2018 STATUS: DEP CLI FAX #: [phone] RAD NO: Page 2 Signed Report Patient Name: JEN OLIVIER Unit No:[id number] EXAMS: CPT CODE: [id number] [facility] TRANSVAGINAL [address] <Continued> The [facility] NAME: JEN OLIVIER Radiology Department PHYS: Remberto Mitchell [address] : 1995 AGE: 22 SEX: F [place] [address] LOC: BlasRAD PHONE #: [phone] EXAM DATE: 06/03/2018 STATUS: DEP [place] #: [phone] RAD NO: Page 3 Signed Report- US PREG AFTER 2018-06-03 11:41:00 Patient Name: JEN OLIVIER Unit No: [id number] EXAMS: CPT CODE: [id number] US PREG AFTER TRI [address] [facility] [address] [place], [place] [address] OBSTETRICAL ULTRASOUND REPORT Pat. Name: JEN OLIVIER. No: [id number] StudyDate: 06/03/2018 9:57am , Age: 03 1995, 22 Pregnancies: 2, Para 0, Ab 1 LMP: 01/05/2018 GA by LMP: 21w2d GA by US: 22w5d GA Selected: 22w2d (From Known E) RAMIRO: 10/05/2018 Referring MD: Darby Robb Front Desk Specialist: Laz Bolanos RDMS CPT4: [id number] Admitting MD: REMBERTO PASTOR Hist/Ind: Anatomy OB Scan #1 ------ MEASUREMENTS AGE GROWTH EVALUATION Measurement GA Range Srce %for GA Ratios ----- ---- ------- BPD 5.8 cm 23w6d (56a6u-81k9p) Hadl BPD >95 FL /BPD 0.66 HC 21.3 cm 23w2d (64n5c-89p9k) Hadl HC 77% FL/AC 0.21 (0.20 - 0.24) APD 5.8 cm APD HC/AC 1.18 (1.04 - 1.23) TAD 5.7 cm TAD CI 0.80 (0.70 - 0.86) AC 18.1 cm 22w5d (64b0r-38n0i) Hadl AC 59% FL 3.8 cm 21w6d (61r2i-59z0i) Hadl FL 41% HL 3.6 cm 22w3d (60i4d-22o9t) Piero HL 53% GA for sonogram 22w5d (21w2d- 24w0d) Weight Estimate: based on (BPD,HC,AC,FL) Hadlock Weight: 530 gm (453-608) Hadlock : 1lbs, 2oz Normal: 500 gm (334-940) Aga Wt% 53% for 22.3 wks Cervical Length: 3.8 cm Heart Rate: 147 bpm CLINICAL SUMMARY Type of Gestation: Almaguer Intrauterine in vertex presentation. size is appropriate for gestational age by weight. growth: Consistent with normal growth motion and organs seen: heart motion seen body and limb movements seen Four chamber heart observed Left ventricular outflow tract (LVOT) seen Right ventricular outflow tract (RVOT) seen Normal intracranial anatomy seen Umbilical cord insertion in fetus seen stomach, Renal Fossa, Bladder and Spine seen [facility] NAME: JEN OLIVIER Radiology Depa rtment PHYS: Remberto Mitchell [address] : 1995 AGE: 22 SEX: F [place], [place] [address] LOC: Olga.RAD PHONE #: [phone] EXAM DATE: 06/03/2018 STATUS: REG CLI FAX #: [phone] RAD NO: Page 1 Signed Report (CONTINUED) Patient Name: JEN OLIVIER Unit No: [id number] EXAMS: CPT CODE: [id number] US PREG AFTER 1ST TRI 16379 <Continued> Three vessel umbilical cord noted Echogenic intracardiac focus seen abnormalities observed: None seen at this exam Placental location: Posterior Low-lying Placental maturity : Grade 1 There is no evidence of placenta previa. Amniotic fluid volume is normal. Uterus and adnexa: No significant abnormalitiesseen Thank you for allowing us to participate in the care of this patient. Hilario Salinas M.D. Electronic Signature 06/03/2018 11:41am at 1141 Reported and signed by: Hilario Salinas MD CC: Duane Nobles III, MD Technologist: Laz Bolanos RDMS Probe: Trnscrbd D/ (1141) [email or web address] Orig Print D/T: S: 06/03/2018 (1141) [facility] NAME: JEN OLIVIER Radiology Department PHYS: Remberto Mitchell [address] : 1995 AGE: 22 SEX: F [place] [address] LOC: BlasRAD PHONE #: [phone] EXAM DATE: 06/03/2018STATUS: REG CLI FAX #: [phone] RAD NO: Page 2Signed Report Patient Name: JEN OLIVIER Unit No: [id number] EXAMS: CPT CODE: [id number] US PREG AFTER 1ST TRI 87042 <Continued> [facility] NAME: JEN OLIVIER Radiology Department PHYS: Remberto Mitchell [address] : 1995 AGE: 22 SEX: F [place] [address] LOC: BlasRAD PHONE #: [phone] EXAM DATE: 06/03/2018 STATUS: REG CLI FAX #: [phone] RAD NO: Page 3 Signed Report
[2021-03-21] MEDS ORDERED: NA CHLORIDE 0.9% 1,000 ML ONE (00:04)
[2021-03-21 00:59] LABS: Absolute Lymphocytes (CBC) 2.8 K/uL (0.7-4.9); Basophils % 0.5 % (0-1.3); Hematocrit 35.4 % (36.0-45.0); Lymphocytes % 38.8 % (15.3-44.8); MPV 7.3 fL (7.6-11.3)
[2021-03-21 01:06] LABS: BUN Blood Urea Nitrogen 15 mg/dL (7-18); Bicarbonate 21 mmol/L (21-32); Glucose Level 91 mg/dL (74-106); Potassium 4.1 mmol/L (3.5-5.1); Sodium Level 139 mmol/L (136-145)
--- NOTE | 2021-03-21 02:20 | EDPHYS ---
Physician Documentation [facility] Name: Kerrie Mc Age: 25 yrs Sex: Female : 1995 Arrival Date: 03/20/2021 Time: 21:08 Bed 20 Private MD: ED Physician Favio Desouza HPI: 03/21 00:12 This 25 yrs old Black Female presents to ER via Ambulatory with complaints of Headache jr8 > 24hrs Old. 00:12 Is a 25-year-old female patient that presented to the emergency room with complaints of jr8 persistent headache. Patient had a recent delivery with epidural. Since then has had a continued headache unrelieved by [id number] medication or medication given in the emergency department. Patient stated this will be her fourth visit to the emergency room for headache. Was seen twice by her original delivering facility and given fluids and medicine and then sent home. Was also seen at [facility] as well. Apparently they did not have anesthesia on that time so continued to hydrate her and give her pain medicine which temporarily relieves the pain. Came back again tonight for the same symptoms. Patient also stated that she had CT with and with contrast of the head with no acute abnormalities. 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 - Social history:: Smoking status: Patient denies any tobacco usage or history of. Patient/guardian denies using alcohol. ROS: 03/21 00:12 Eyes: Negative for injury, pain, redness, and discharge, ENT: Negative for injury, jr8 pain, and discharge, Neck: Negative for injury, pain, and swelling, Cardiovascular: Negative for chest pain, palpitations, and edema, Respiratory: Negative for shortness of breath, cough, wheezing, and pleuritic chest pain, Abdomen/GI: Negative for abdominal pain, nausea, vomiting, diarrhea, and constipation, Back: Negative for injury and pain, MS/Extremity: Negative for injury and deformity, Skin: Negative for injury, rash, and discoloration. Neuro: Positive for headache. Exam: 00:12 Constitutional: This is a well developed, well nourished patient who is awake, alert, jr8 and in no acute distress. Eyes: Pupils equal round and reactive to light, extra-ocular motions intact. Lids and lashes normal. Conjunctiva and sclera are non-icteric and not injected. Cornea within normal limits. Periorbital areas with no swelling, redness, or edema. ENT: Nares patent. No nasal discharge, no septal abnormalities noted. Tympanic membranes are normal and external auditory canals are clear. Oropharynx with no redness, swelling, or masses, exudates, or evidence of obstruction, uvula midline. Mucous membranes moist. Neck: Trachea midline, no thyromegaly or masses palpated, and no cervical lymphadenopathy. Supple, full range of motion without nuchal rigidity, or vertebral point tenderness. No Meningismus. Cardiovascular: Regular rate and rhythm with a normal S1 and S2. No gallops, murmurs, or rubs. Normal PMI, no JVD. No pulse deficits. Respiratory: Lungs have equal breath sounds bilaterally, clear to auscultation and percussion. No rales, rhonchi or wheezes noted. No increased work of breathing, no retractions or nasal flaring. Abdomen/GI: Soft, non-tender, with normal bowel sounds. No distension or tympany. No guarding or rebound. No evidence of tenderness throughout. Back: No spinal tenderness. No costovertebral tenderness. Full range of motion. Skin: Warm, dry with normal turgor. Normal color with no rashes, no lesions, and no evidence of cellulitis. MS/ Extremity: Pulses equal, no cyanosis. Neurovascular intact. Full, normal range of motion. Neuro: Awake and alert, GCS 15, oriented to person, place, time, and situation. Cranial nerves II-XII grossly intact. Motor strength 5/5 in all extremities. Sensory grossly intact. Cerebellar exam normal. Normal gait. Vital Signs: 03/20 21:49 BP 127 / 97; Pulse 93; Resp 18; Temp 98.5(O); Pulse Ox 99% on R/A; Weight 97.52 kg; ld1 Height 5 ft. 4 in. (162.56 cm); Pain 8/10; 03/21 02:30 BP 124 / 96; Pulse 73; Resp 20 S; Temp 98.3(O); Pulse Ox 100% on R/A; bb 03/20 21:49 Body Mass Index 36.90 (97.52 kg, 162.56 cm) ld1 MDM: 03/20 23:21 Patient medically screened. jr8 03/21 00:05 ED course: Discussed case with Dr. Mejia anesthesiology. He agreed to come in for blood jr8 patch for patient.. 00:12 Data reviewed: vital signs, nurses notes, lab test result(s). Data interpreted: Pulse jr8 oximetry: on room air is 99 %. Interpretation: normal. Counseling: I had a detailed discussion with the patient and/or guardian regarding: the historical points, exam findings, and any diagnostic results supporting the discharge/admit diagnosis, lab results. 02:18 ED course: Patient feeling much better after blood patch. Patient is able to sit up jr8 with no headache at this time. Finishing her fluid bolus at this time and will be discharged home to follow-up.. 03/21 00:00 Order name: CBC with Diff; Complete Time: 01:17 jr8 03/21 00:00 Order name: Basic Metabolic Panel; Complete Time: :17 jr8 03/20 23:40 Order name: IV; Complete Time: 00:41 jr8 Administered Medications: 00:35 Drug: NS 0.9% 1000 ml Route: IV; Rate: 1000 ml; Site: right forearm; bb 02:30 Follow up: IV Status: Order to discontinue infusion; IV Intake: 950ml cc4 Disposition Summary: 03/21/21 02:20 Discharge Ordered Location: Home [facility] Problem: new jr8 Symptoms: have improved jr8 Condition: Stable jr8 Diagnosis - Spinal and epidural anesthesia-induced headache during labor and delivery jr8 Followup: jr8 - With: Private Physician - When: 2 - 3 days - Reason: Recheck today's complaints, Continuance of care, Re-evaluation by your physician Discharge Instructions: - Discharge Summary Sheet jr8 - Epidural Blood Patch for Spinal Headache jr8 - Spinal Headache jr8 Forms: - Medication Reconciliation Form jr8 - Thank You Letter jr8 - Antibiotic Education jr8 - Prescription Opioid Use jr8 Addendum: 03/22/2021 09:23 Co-signature as Attending Physician, Favio Desouza MD I agree with the assessment and c joshi plan of care. Signatures: Dispatcher [employer] Favio Olmos MD MD cha Ballard, Brenda, RN RN Christian Florentino PA PA jr8 Yuliana Yu RN RN ld1 Felicia Toth RN cc4
--- NOTE | 2021-03-21 02:20 | ER ---
Nurse's Notes [facility] Name: Kerrie Mc Age: 25 yrs Sex: Female : 1995 Arrival Date: 03/20/2021 Time: 21:08 Bed 20 Private MD: Diagnosis: Spinal and epidural anesthesia-induced headache during labor and delivery Presentation: 03/20 21:49 Chief complaint: Patient states: I have had a really bad headache for the past two ld1 weeks after I delivered my baby. The only relief I get from the headache is when I lay my head down. "I am pretty sure it was from my epidural.". Coronavirus screen: Client presents with at least one sign or symptom that may indicate coronavirus-19. Standard/surgical mask placed on the client. Ebola Screen: No symptoms or risks identified at this time. Initial Sepsis Screen: Does the patient meet any 2 criteria? No. Patient's initial sepsis screen is negative. Does the patient have a suspected source of infection? No. Patient's initial sepsis screen is negative. Risk Assessment: Do you want to hurt yourself or someone else? Patient reports no desire to harm self or others. Onset of symptoms was March 20, 2021. 21:49 Method Of Arrival: Ambulatory ld1 21:49 Acuity: NEVILLE 3 ld1 Triage Assessment: 21:50 Headache History: Denies prior headaches. General: Appears in no apparent distress. ld1 comfortable, Behavior is calm, cooperative, appropriate for age. Pain: Complains of pain in face Pain does not radiate. Pain currently is 8 out of 10 on a pain scale. at worst was 10 out of 10 on a pain scale. Quality of pain is described as sharp, shooting, stabbing, throbbing, Pain began suddenly, Is continuous. EENT: No signs and/or symptoms were reported regarding the EENT system. Neuro: Level of Consciousness is awake, alert, obeys commands, Oriented to person, place, time, situation, Appropriate for age. Cardiovascular: Capillary refill < 3 seconds Patient's skin is warm and dry. Respiratory: Airway is patent Respiratory effort is even, unlabored, Respiratory pattern is regular, symmetrical. GI: Abdomen is flat, non-distended. : No signs and/or symptoms were reported regarding the genitourinary system. Derm: No signs and/or symptoms reported regarding the dermatologic system. Musculoskeletal: No signs and/or symptoms reported regarding the musculoskeletal system. 03/21 00:35 Pain: Complains of pain in head Pain radiates to frontal with intermittent radiation bb into neck. upon sitting or standing; reports relief of headache when resting \\T\\ lying down. Pain currently is 0 out of 10 on a pain scale. Quality of pain is described as sharp, shooting, stabbing, headache when up. EENT: No deficits noted. Eyes clear. Nares are clear Oral mucosa is moist. 00:35 Pain: Also complains of Headache upon standing/sitting x 2 weeks post- epidural during cc4 delivery of baby; reports lying down to rest relieves headache; standing or sitting aggravates headache. 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 - Social history:: Smoking status: Patient denies any tobacco usage or history of. Patient/guardian denies using alcohol. Screenin/23 00:35 Abuse screen: Denies threats or abuse. Nutritional screening: No deficits noted. bb Tuberculosis screening: No symptoms or risk factors identified. Fall Risk None identified. Assessment: 00:35 Reassessment: # 24 g diffusics inserted right FA x 2 attempts per CHRISTIN Fish with cc4 blood drawn \\T\\ sent to lab, kris. hemalatha; IV NS hng to saline lock \\T\\ infusing \\T\\ bolus rate with no s/sx's of infiltration. 00:50 Reassessment: Patient appears in no apparent distress at this time. Dr. Mejia in \\T\\ cc4 bedside obtaining consent for lumbar puncture/blood patch. 01:30 Reassessment: Lumbar puncture completed per Dr Colt Mejia with blood drawn from cc4 diffusics right FA saline lock \\T\\ handed off to Dr. Mejia with blood patch completed, tol. penny; placed in supine position per kris Guzman. Patient states feeling better. 01:50 Reassessment: Patient appears in no apparent distress at this time. Placed in sitting cc4 position per ; denies headache; reports feeling better. 02:30 Reassessment: Standing \\T\\ bedside; denies any headache; reports feeling better. cc4 Vital Signs: 03/20 21:49 BP 127 / 97; Pulse 93; Resp 18; Temp 98.5(O); Pulse Ox 99% on R/A; Weight 97.52 kg; ld1 Height 5 ft. 4 in. (162.56 cm); Pain 8; 03/21 02:30 BP 124 / 96; Pulse 73; Resp 20 S; Temp 98.3(O); Pulse Ox 100% on R/A; bb 03/20 21:49 Body Mass Index 36.90 (97.52 kg, 162.56 cm) ld1 ED Course: 03/20 21:08 Patient arrived in ED. bp1 21:50 Triage completed. ld1 21:50 Arm band placed on right wrist. ld1 23:17 Christian Farris PA is PHCP. jr8 23:17 Favio Desouza MD is Attending Physician. jr8 03/21 00:01 Rosalia Proctor RN is Primary Nurse. bb 00:35 Patient has correct armband on for positive identification. Placed in gown. Bed in low cc4 position. Call light in reach. Side rails up X2. Pulse ox on. NIBP on. 00:41 Basic Metabolic Panel Sent. bb 00:41 CBC with Diff Sent. bb 00:45 Inserted saline lock: 24 gauge in right antecubital area, using aseptic technique. ds4 Blood collected. Missed attempt(s): 24 gauge in right forearm. Bleeding controlled, band aid applied, catheter tip intact. 01:30 Assist provider with lumbar puncture: Set up LP tray. Performed by Colt salazar Puncture site dressed with band aid, Procedure was successful. 02:30 IV discontinued, intact, bleeding controlled, No redness/swelling at site. Pressure cc4 dressing applied. Administered Medications: 00:35 Drug: NS 0.9% 1000 ml Route: IV; Rate: 1000 ml; Site: right forearm; bb 02:30 Follow up: IV Status: Order to discontinue infusion; IV Intake: 950ml cc4 Intake: 02:30 IV: 950ml; Total: 950ml. cc4 Outcome: 02:20 Discharge ordered by . 8 02:30 Patient left the ED. cc4 02:30 Discharged to home ambulatory, with significant other. cc4 02:30 Condition: improved 02:30 Discharge instructions given to patient, Instructed on follow up and referral plans. 02:30 Discharge instructions given to patient. cc4 Signatures: Rosalia Proctor RN RN bb Christian Farris PA PA jr8 Abe Nunes ds4 Zainab De Oliveira Lauren, RN RN ld1 Felicia Toth, RN RN cc4 Corrections: (The following items were deleted from the chart) 03:49 02:51 Patient left the ED. martin cc4
[2021-03-21 03:04] VITALS: BP 127/97; TEMP 98.5; O2SAT 99
== END 2021-03-21 02:51 | disposition home or self-care (01) ==
LOC: ER 21:01
DX: O74.5 Spinal and epidural anesthesia-induced headache during labor and delivery (principal)
CPT/HCPCS: 96361; 85025; 80048; 36415; 62270; 96360; 99284; J7030

== ENCOUNTER 2021-11-07 20:46 | Emergency (ER) | payer BC ==
--- NOTE | 2021-11-07 21:49 | ER ---
Nurse's Notes [facility] Name: Kerrie Mc Age: 26 yrs Sex: Female : 1995 Arrival Date: 11/07/2021 Time: 20:48 Bed 25 Private MD: Diagnosis: Presentation: 11/07 20:56 Chief complaint: Patient states: headache 4/10 pain on left side of head, started 30 ld1 minutes ago. Tingling of tongue, jaw clenching, dizziness started 3 hours ago. Coronavirus screen: Vaccine status: Patient reports receiving the 2nd dose of the covid vaccine. Ebola Screen: No symptoms or risks identified at this time. Initial Sepsis Screen: Does the patient meet any 2 criteria? No. Patient's initial sepsis screen is negative. Does the patient have a suspected source of infection? No. Patient's initial sepsis screen is negative. Risk Assessment: Do you want to hurt yourself or someone else? Patient reports no desire to harm self or others. Onset of symptoms was November 07, 2021 at 17:00. 20:56 Method Of Arrival: Ambulatory ld1 20:56 Acuity: NEVILLE 4 ld1 Triage Assessment: 21:01 Headache History: The patient has had previous headaches and this one is different than 3 previous episodes, and this one is less severe than previous episodes. General: Appears in no apparent distress. uncomfortable, Behavior is cooperative, appropriate for age, anxious. Pain: Complains of pain in left yarsanism and left temporal area Pain does not radiate. Pain currently is 4 out of 10 on a pain scale. Pain began 30 min ago. Also complains of. 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 - Social history:: Patient/guardian denies using alcohol, street drugs, tobacco products. Vital Signs: 20:56 BP 148 / 79 RA; Pulse 87; Resp 16; Temp 97.2(T); Pulse Ox 100% on R/A; Weight 104.33 ld1 kg; Height 5 ft. 4 in. (162.56 cm); Pain 4/10; 20:56 Body Mass Index 39.48 (104.33 kg, 162.56 cm) ld1 ED Course: 20:48 Patient arrived in ED. ja2 20:59 Triage completed. ld1 21:01 Arm band placed on right wrist. eh3 Administered Medications: No medications were administered Outcome: 21:48 Patient left the ED. kd3 Signatures: Yuliana Yu, RN RN ld1 Elzi Tamayo2 Martha Nichols RN RN kd3 Amira Caldwell 3
[2021-11-07 22:04] VITALS: BP 148/79; TEMP 97.2; O2SAT 100
== END 2021-11-07 21:48 | disposition left against medical advice (07) ==
LOC: ER 20:46
DX: R51.9 Headache, unspecified (principal); R42 Dizziness and giddiness; Z53.29 Procedure and treatment not carried out because of patient's decision for other reasons
CPT/HCPCS: 99281

== ENCOUNTER 2024-02-03 17:16 | Emergency (ER) | payer BC ==
[2024-02-03] MEDS ORDERED: ASPIRIN 81 MG CHEWABLE TABLET ONE (17:42)
[2024-02-03 17:48] LABS: Absolute Basophils 0.1 K/uL (0-0.5); Absolute Eosinophils 0.3 K/uL (0-0.5); Absolute Lymphocytes (CBC) 2.9 K/uL (0.7-4.9); Absolute Monocytes 0.7 K/uL (0.1-1.3); Absolute Neutrophil 3.4 K/uL (1.8-8.0); Basophils % 0.8 % (0-1.3); Eosinophils % 4.5 % (0-4.4); Hematocrit 35.5 % (36.0-45.0); Hemoglobin 11.8 g/dL (12.0-15.0); Lymphocytes % 39.3 % (15.3-44.8); MCH 29.8 pg (27.0-35.0); MCHC 33.2 g/dL (32.0-36.0); MCV 89.9 fL (80-100); MPV 7.3 fL (7.6-11.3); Monocytes % 8.8 % (3.3-12.3); Neutrophils % 46.6 % (41.7-73.7); Platelets 316 thou/uL (152-406); RBC Red Blood Cell Count 3.95 M/uL (3.86-4.86); Red Cell Distribution Width 13.4 % (12.1-15.2)
[2024-02-03 18:06] LABS: Anion Gap 8.9 mEq/L (5.0-15.0); Potassium 3.9 mEq/L (3.5-5.1); Troponin High Sensitivity 4.1 pg/mL (<58.9)
--- NOTE | 2024-02-03 18:27 | RAD REPORT ---
EXAMINATION: ONE VIEW CHEST XR CLINICAL INDICATION: Female, 28 years old.CHEST PAIN TECHNIQUE: 1 View, AP supine, X-ray of the chest was performed. [id number]. COMPARISON: No prior exam. FINDINGS: Lungs and pleura: Clear lungs. No effusion. Heart and mediastinum: Normal heart size. Unremarkable mediastinal contours. Osseous structures: No acute abnormality. Tubes/lines: None Other: None. IMPRESSION: No acute intrathoracic abnormality.
--- NOTE | 2024-02-03 18:45 | EDPHYS ---
Physician Documentation [facility] Name: Kerrie Mc Age: 28 yrs Sex: Female : 1995 Arrival Date: 02/03/2024 Time: 17:16 Bed 2 Private MD: ED Physician Favio Desouza HPI: 02/02 17:37 This 28 yrs old Black Female presents to ER via Ambulatory with complaints of Chest kb Pain. 17:37 Pt is a 28 year old female who presents for left sided chest pain that started at 1300 kb today. Reports associated shortness of breath. States she started having left arm pain as well at 1530 so she decided to have it checked out. Arm pain has resolved at this time. States she does have a history of hypertension and anxiety. . Historical: - Allergies: 17:30 No Known Allergies; hb - Home Meds: 17:30 Propranolol Oral as needed [Active]; hb - PMHx: 17:30 Hypertension; hb - PSHx: 17:30 None; hb - Immunization history:: Adult Immunizations up to date. - Infectious Disease History:: Denies. - Social history:: Smoking status: Patient denies any tobacco usage or history of. ROS: 17:37 Constitutional: As per HPI kb Exam: 17:37 Constitutional: This is a well developed, well nourished patient who is awake, alert, kb and in no acute distress. Head/Face: Normocephalic, atraumatic. ENT: Moist Mucous membranes Cardiovascular: Regular rate Respiratory: Respirations even and unlabored. No increased work of breathing. Talking in full sentences Abdomen/GI: Soft, non-tender. No distention Skin: Warm, dry with normal turgor. Normal color. MS/ Extremity: Pulses equal, no cyanosis. Neurovascular intact. Full, normal range of motion. Neuro: Awake and alert, GCS 15, oriented to person, place, time, and situation. Moves all extremities. Normal gait. 17:37 ECG was reviewed by the Attending Physician. Vital Signs: 17:28 BP 135 / 93; Pulse 72; Resp 16; Temp 97.7(O); Pulse Ox 100% on R/A; Weight 104.33 kg; hb Height 5 ft. 4 in. ; Pain 2/10; 18:30 BP 123 / 74; Pulse 77; Resp 16; Pulse Ox 99% on R/A; hb 17:28 Body Mass Index 39.48 (104.33 kg, 162.56 cm) hb 17:28 Pain Scale: Adult hb MDM: 17:19 Patient medically screened. kb 18:45 Data reviewed: vital signs, nurses notes. kb 18:45 Differential diagnosis: PE, FL, arrhythmia, anxiety. Test considered but Not performed: kb CT: ct chest considered but d-dimer normal. Counseling: I had a detailed discussion with the patient and/or guardian regarding the historical points, exam findings, and any diagnostic results supporting the discharge/admit diagnosis, lab results, radiology results, the need for outpatient follow up, a family practitioner, to return to the emergency department if symptoms worsen or persist or if there are any questions or concerns that arise at home. 02/02 17:27 Order name: Basic Metabolic Panel; Complete Time: 18:10 kb 02/02 17:27 Order name: CBC with Diff; Complete Time: 18:00 kb 02/02 17:27 Order name: D-Dimer; Complete Time: 18:38 kb 02/02 17:27 Order name: Magnesium; Complete Time: 18:10 kb 02/02 17:27 Order name: Troponin HS; Complete Time: 18:10 kb 02/02 17:27 Order name: XRAY Chest (1 view); Complete Time: 18:32 kb 02/02 17:27 Order name: EKG; Complete Time: 17:28 kb 02/02 17:27 Order name: Cardiac monitoring; Complete Time: 17:33 kb 02/02 17:27 Order name: EKG - Nurse/Tech; Complete Time: 17:40 kb 02/02 17:27 Order name: IV Saline Lock; Complete Time: 17:40 kb 02/02 17:27 Order name: Labs collected and sent; Complete Time: 17:40 kb 02/02 17:27 Order name: O2 Per Protocol; Complete Time: 17:33 kb 02/02 17:27 Order name: O2 Sat Monitoring; Complete Time: 17:33 kb 02/02 17:52 Order name: Labs - recollect needed: blue top; Complete Time: 18:23 kb EC:37 Rate is 75 beats/min. Rhythm is regular. QRS Risco is Normal. IL interval is normal at kb 190 msec. QRS interval is normal at 92 msec. QT interval is normal at 406 msec. Administered Medications: 17:45 Drug: Aspirin PO Chewable Tablet 324 mg PO once; 81 mg tablets x 4 Route: PO; hb 18:23 Follow up: Response: No adverse reaction ss Disposition Summary: 02/03/24 18:44 Discharge Ordered Notes: Location: Home kb Condition: Stable kb Diagnosis - Chest pain, unspecified kb Followup: kb - With: Private Physician - When: 2 - 3 days - Reason: Recheck today's complaints, Continuance of care, Re-evaluation by your physician Followup: kb - With: Emergency Department - When: As needed - Reason: Worsening of condition Discharge Instructions: - Discharge Summary Sheet kb - Nonspecific Chest Pain, Adult, [id number] kb Forms: - Medication Reconciliation Form kb - Antibiotic Education kb - Prescription Opioid Use kb - Patient Portal Instructions kb - Leadership Thank You Letter kb Signatures: Dispatcher [employer] EDMS Barbara Aguilar, INVESTIGATIVE ANALYST-C AYAKA-Lubna De Anda RN RN Latonya Hernandez RN Corrections: (The following items were deleted from the chart) 17:28 17:28 BASIC METABOLIC PANEL+C.LAB.BRZ ordered. EDMS EDMS 17:28 17:28 CBC+H.LAB.BRZ ordered. EDMS EDMS 17:28 17:28 D-DIMER+COAG.LAB.BRZ ordered. EDMS EDMS 17:28 17:28 MAGNESIUM+C.LAB.BRZ ordered. EDMS EDMS 17:28 17:28 Troponin High Sensitivity+C.LAB.BRZ ordered. EDMS EDMS
--- NOTE | 2024-02-03 18:45 | ER ---
Nurse's Notes [facility] Name: Kerrie Mc Age: 28 yrs Sex: Female : 1995 Arrival Date: 02/03/2024 Time: 17:16 Bed 2 Private MD: Diagnosis: Chest pain, unspecified Presentation: 02/02 17:28 Chief complaint: Left sided chest pain that radiates to left arm x 3 hrs. Coronavirus hb screen: At this time, the client does not indicate any symptoms associated with coronavirus-19. Ebola Screen: No symptoms or risks identified at this time. 17:28 Method Of Arrival: Ambulatory hb 17:33 Initial Sepsis Screen: Does the patient meet any 2 criteria? No. Patient's initial hb sepsis screen is negative. Does the patient have a suspected source of infection? No. Patient's initial sepsis screen is negative. Risk Assessment: Do you want to hurt yourself or someone else? Patient reports no desire to harm self or others. Onset of symptoms was February 03, 2024. 17:33 Acuity: NEVILLE 3 hb Triage Assessment: 17:31 General: Appears in no apparent distress. Behavior is calm, cooperative. Pain: Pain hb currently is 2 out of 10 on a pain scale. at worst was 8 out of 10 on a pain scale. Neuro: Level of Consciousness is awake, alert, obeys commands, Oriented to person, place, time, situation. Cardiovascular: Reports chest pain, Patient's skin is warm and dry. Respiratory: Respiratory effort is even, unlabored, Respiratory pattern is regular, symmetrical. Historical: - Allergies: 17:30 No Known Allergies; hb - Home Meds: 17:30 Propranolol Oral as needed [Active]; hb - PMHx: 17:30 Hypertension; hb - PSHx: 17:30 None; hb - Immunization history:: Adult Immunizations up to date. - Infectious Disease History:: Denies. - Social history:: Smoking status: Patient denies any tobacco usage or history of. Screenin:32 [facility] ED Fall Risk Assessment (Adult) History of falling in the last 3 months, hb including since admission No falls in past 3 months (0 pts) Confusion or Disorientation No (0 pts) Intoxicated or Sedated No (0 pts) Impaired Gait No (0 pts) Mobility Assist Device Used No (0 pt) Altered Elimination No (0 pt) Score/Fall Risk Level 0 - 2 = Low Risk Oriented to surroundings, Maintained a safe environment, Educated pt \T\ family on fall prevention, incl call for assistance when getting out of bed. Abuse screen: Denies threats or abuse. Denies injuries from another. Nutritional screening: No deficits noted. Tuberculosis screening: No symptoms or risk factors identified. Assessment: 17:32 General: See triage assessment . hb 18:30 Reassessment: Patient appears in no apparent distress at this time. Patient and/or hb family updated on plan of care and expected duration. Pain level reassessed. Patient is alert, oriented x 3, equal unlabored respirations, skin warm/dry/pink. Vital Signs: 17:28 BP 135 / 93; Pulse 72; Resp 16; Temp 97.7(O); Pulse Ox 100% on R/A; Weight 104.33 kg; hb Height 5 ft. 4 in. ; Pain 2/10; 18:30 BP 123 / 74; Pulse 77; Resp 16; Pulse Ox 99% on R/A; hb 17:28 Body Mass Index 39.48 (104.33 kg, 162.56 cm) hb 17:28 Pain Scale: Adult hb ED Course: 17:18 Patient arrived in ED. [id number] 17:18 [facility]C [facility]. kb 17:18 Favio Desouza MD is Attending Physician. kb 17:31 Arm band placed on. hb 17:32 Patient has correct armband on for positive identification. Provided Education on: hb tests, result times . Client placed on continuous cardiac and pulse oximetry monitoring. NIBP monitoring applied. conveyor monitor on. Pulse ox on. NIBP on. 17:32 Patient maintains SpO2 saturation greater than 95% on room air. hb 17:33 Triage completed. hb 17:33 Lubna Perry, RN is Primary Nurse. hb 17:40 Basic Metabolic Panel Sent. hb 17:40 CBC with Diff Sent. hb 17:40 D-Dimer Sent. hb 17:40 Magnesium Sent. hb 17:40 Troponin HS Sent. hb 17:41 Initial lab(s) drawn, by me, sent to lab. Inserted saline lock: 22 gauge in left hb antecubital area, using aseptic technique. Blood collected. Flushed with 10 mL NS. 18:10 XRAY Chest (1 view) In Process Unspecified. EDMS 18:47 No provider procedures requiring assistance completed. IV discontinued, intact, hb bleeding controlled, No redness/swelling at site. Pressure dressing applied. Administered Medications: 17:45 Drug: Aspirin PO Chewable Tablet 324 mg PO once; 81 mg tablets x 4 Route: PO; hb 18:23 Follow up: Response: No adverse reaction ss Medication: 17:32 VIS not applicable for this client. hb Outcome: 18:44 Discharge ordered by . tan 18:47 Discharged to home ambulatory, hb 18:47 Condition: stable 18:47 Discharge instructions given to patient, Instructed on discharge instructions, follow up and referral plans. medication usage, Demonstrated understanding of instructions, follow-up care, medications, 18:53 Patient left the ED. hb Signatures: Dispatcher [employer] EDWA Barbara Aguilar, FLEECER-C FLEECER-Latonya Parada RN RN Lubna Perry RN RN hb Martinez, Clarissa RN RN cm10
[2024-02-03 18:58] VITALS: TEMP 97.7
[2024-02-03 19:00] VITALS: BP 123/74; O2SAT 99
--- NOTE | 2024-02-04 12:27 | EKG ---
Test Date: 2024-02-03 Test Time: 17:29:41 [employer] Manager: MARIBEL MEASUREMENT RESULTS: Intervals: Rate: 75 WA: 190 QRSD: 92 QT: 364 QTc: 406 Busby: P: 43 WA: 190 QRS: 34 T: 31 INTERPRETIVE STATEMENTS: Normal sinus rhythm Normal ECG Compared to ECG 03/21/2017 00:19:05 No significant changes Electronically Signed On 02-04-24 12:25:43 CDT by Benny Luna
== END 2024-02-03 18:53 | disposition home or self-care (01) ==
LOC: ER 17:16
DX: R07.9 Chest pain, unspecified (principal); I10 Essential (primary) hypertension
CPT/HCPCS: 36415; 71045; 80048; 83735; 84484; 85025; 85379; 93005; 99284